=== PATIENT | male | born 1965 | race Caucasian/White ===

== ENCOUNTER 2022-10-27 23:33 | Emergency (ER) | payer BC ==
[~2022-10-27] VITALS: Ht 188 cm; Wt 81.8 kg
[2022-10-27 23:46] VITALS: BP 107/56
[2022-10-28] VITALS (10 sets, daily range): BP systolic 109–138; BP diastolic 72–87
[2022-10-28 00:03] LABS: BASO% 0.5 % (0-3); EOS% 0.5 % (0-8); HEMATOCRIT 31.4 % (39.0-50.0); HEMOGLOBIN 11.2 g/dl (14.0-18.0); IMMATURE GRANULOCYTES 0.5 % (0.0-5.0); LYMPH% 27.9 % (15-41); MEAN CELL VOLUME 82.8 fL CALC (80.0-100.0); MEAN CORPUSCULAR HGB 29.6 pG CALC (26.0-32.0); MEAN CORPUSCULAR HGB CONC 35.7 g/dL CAL (32.0-36.0); MONO% 15.8 % (2-13); NEUT# 2.04 thou/uL (1.82-7.42); NEUT% 54.8 % (42-76); RED BLOOD COUNT 3.79 mill/uL (4.70-6.10); RED CELL DISTRI WIDTH 13.7 % (11.5-15.5)
[2022-10-28 00:28] LABS: ALBUMIN 3.9 g/dL (3.2-5.0); ALKALINE PHOSPHATASE 135 u/l (38-126); ANION GAP 12 (6-22 (CALC)); BUN 5 mg/dL (9-20); BUN/CREATININE RATIO 6 (12-20 (CALC)); CARBON DIOXIDE 25 mmol/l (22-30); CHLORIDE 95 mmol/l (95-108); CREATININE 0.8 mg/dL (0.7-1.3); ETHYL ALCOHOL 0 mg/dl (0-30); GFR FOR AFR.AMER. > 60 ML/MIN (>=60 (CALC)); GFR OTHER RACES > 60 ML/MIN (>=60 (CALC)); LIPASE 109 u/l (23-300); MAGNESIUM 1.6 mg/dL (1.6-2.3); POTASSIUM 3.4 mmol/l (3.5-5.1); SGOT/AST 183 u/l (17-59); SODIUM 128 mmol/l (137-146); TOTAL PROTEIN 6.4 g/dL (6.3-8.2)
[2022-10-28 01:34] LABS: URINE BILIRUBIN - DIPSTICK NEGATIVE (NEGATIVE); URINE BLOOD DIPSTICK NEGATIVE (NEGATIVE); URINE COLOR YELLOW; URINE GLUCOSE - DIPSTICK NEGATIVE (NEGATIVE); URINE KETONE NEGATIVE (NEGATIVE); URINE LEUK ESTERASE NEGATIVE (NEGATIVE); URINE PROTEIN - DIPSTICK NEGATIVE (NEG-TRACE); URINE SPECIFIC GRAVITY <=1.005; URINE UROBILINOGEN - DIPSTICK 0.2 E.U./dL (0.2)
[2022-10-28 01:45] LABS: URINE NITRITE - DIPSTICK NEGATIVE (Negative)
[2022-10-28] MEDS ORDERED: LEXAPRO10 MG PO (02:17)
[2022-10-28] MEDS ORDERED: LIBRIUM10 MG PO (02:17)
[2022-10-28] MEDS ORDERED: K-TAB20 MEQ PO (10:40)
[2022-10-28] MEDS ORDERED: ZOFRAN4 MG/TAB PO (10:40)
== END 2022-10-28 05:00 | disposition home or self-care (01) | DRG 897 ==
LOC: ED 23:33
PROVIDERS: Family Medicine
DX: F10.10 Alcohol abuse, uncomplicated (principal); F41.9 Anxiety disorder, unspecified
CPT/HCPCS: Q9967

== ENCOUNTER 2022-10-28 09:29 | Emergency (ER) | payer BC ==
[~2022-10-28] VITALS: Ht 188 cm; Wt 77.0 kg
[~2022-10-28 09:29] MED LIST: LEXAPRO10 MG PO; LIBRIUM10 MG PO
[2022-10-28 09:44] VITALS: BP 151/88
[2022-10-28 09:54] LABS: BASO% 0.6 % (0-3); EOS% 0.2 % (0-8); HEMATOCRIT 35.6 % (39.0-50.0); HEMOGLOBIN 12.4 g/dl (14.0-18.0); IMMATURE GRANULOCYTES 0.4 % (0.0-5.0); LYMPH% 21.3 % (15-41); MEAN CELL VOLUME 83.8 fL CALC (80.0-100.0); MEAN CORPUSCULAR HGB 29.2 pG CALC (26.0-32.0); MEAN CORPUSCULAR HGB CONC 34.8 g/dL CAL (32.0-36.0); MONO% 14.2 % (2-13); NEUT# 3.31 thou/uL (1.82-7.42); NEUT% 63.3 % (42-76); RED BLOOD COUNT 4.25 mill/uL (4.70-6.10); RED CELL DISTRI WIDTH 14.2 % (11.5-15.5)
[2022-10-28 10:00] VITALS: BP 142/96
[2022-10-28 10:08] LABS: ALBUMIN 4.5 g/dL (3.2-5.0); ALKALINE PHOSPHATASE 110 u/l (38-126); ANION GAP 14 (6-22 (CALC)); BILIRUBIN, TOTAL 0.3 mg/dL (0.0-1.4); BUN 4 mg/dL (9-20); BUN/CREATININE RATIO 5 (12-20 (CALC)); CARBON DIOXIDE 26 mmol/l (22-30); CHLORIDE 95 mmol/l (95-108); CREATININE 0.9 mg/dL (0.7-1.3); ETHYL ALCOHOL 0 mg/dl (0-30); GFR FOR AFR.AMER. > 60 ML/MIN (>=60 (CALC)); GFR OTHER RACES > 60 ML/MIN (>=60 (CALC)); POTASSIUM 3.1 mmol/l (3.5-5.1); SGOT/AST 193 u/l (17-59); SODIUM 132 mmol/l (137-146); TOTAL PROTEIN 7.2 g/dL (6.3-8.2)
[2022-10-28 10:15] VITALS: BP 128/84
[2022-10-28 10:30] VITALS: BP 127/85
[2022-10-28] MEDS ORDERED: K-TAB20 MEQ PO (10:40)
[2022-10-28] MEDS ORDERED: ZOFRAN4 MG/TAB PO (10:40)
[2022-10-28 10:45] VITALS: BP 127/84
[2022-10-28 10:57] VITALS: BP 127/84
== END 2022-10-28 11:00 | disposition home or self-care (01) | DRG 897 ==
LOC: ED 09:29
PROVIDERS: Family Medicine
DX: F10.10 Alcohol abuse, uncomplicated (principal); F41.9 Anxiety disorder, unspecified

== ENCOUNTER 2023-11-30 18:17 | Emergency (ER) | payer OTHER ==
[~2023-11-30 18:17] MED LIST changes: +K-TAB20 MEQ PO; +ZOFRAN4 MG/TAB PO
[2023-11-30 18:59] VITALS: BP 135/96
== END 2023-11-30 19:00 | disposition left against medical advice (07) | DRG 951 ==
LOC: ED 18:17 → LWOBS 18:59
DX: Z53.21 Procedure and treatment not carried out due to patient leaving prior to being seen by health care provider (principal)

== ENCOUNTER 2024-06-23 13:54 | Emergency (ER) | payer SELFPAY ==
[2024-06-23] VITALS (12 sets, daily range): BP systolic 135–167; BP diastolic 76–102
[~2024-06-23] VITALS: Ht 188 cm; Wt 88.4 kg
[2024-06-23] MEDS ORDERED: SODIUM CHLORIDE 0.9% 1,000 ML IV ONE (14:10)
[2024-06-23] MEDS ORDERED: ONDANSETRON HCl 4 MG/2 ML SDV IV ONE (14:10)
[2024-06-23] MEDS ORDERED: MULTIPLE VITAMIN 10 ML,THIAMINE HCL 100 MG in DEXTROSE 5% / 0.9% NACL 1,000 ML IV ONE ×2 (14:10→16:45)
[2024-06-23 14:21] LABS: BASO% 0.6 % (0-3); EOS% 0.1 % (0-8); HEMATOCRIT 45.8 % (39.0-50.0); IMMATURE GRANULOCYTES 0.1 % (0.0-5.0); MEAN CELL VOLUME 84.8 fL CALC (80.0-100.0); MEAN CORPUSCULAR HGB 29.6 pG CALC (26.0-32.0); MEAN CORPUSCULAR HGB CONC 34.9 g/dL CAL (32.0-36.0); MONO% 7.6 % (2-13); NEUT# 5.73 thou/uL (1.82-7.42); NEUT% 60.6 % (42-76); RED BLOOD COUNT 5.4 mill/uL (4.70-6.10); RED CELL DISTRI WIDTH 12.9 % (11.5-15.5)
[2024-06-23] MEDS ORDERED: MIDAZOLAM HCL 2 MG/2 ML VIAL IV ONE ×2 (14:25→16:35)
[2024-06-23 14:36] LABS: POTASSIUM 3.3 mmol/l (3.5-5.1); TOTAL PROTEIN 8.1 g/dL (6.3-8.2)
[2024-06-23 14:50] LABS: BILIRUBIN, TOTAL 1.1 mg/dL (0.2-1.3)
[2024-06-23 15:01] LABS: INTERNATIONAL NORMALIZED RATIO 1.1 RATIO (0.7-1.3)
[2024-06-23 15:04] LABS: PROTHROMBIN TIME 10.1 SECONDS (9.0-12.5)
[2024-06-23] MEDS ORDERED: POTASSIUM CHLORIDE 20 MEQ/TAB PO ONE (16:25)
[2024-06-23] MEDS ORDERED: MAGNESIUM HYDROXIDE 30 ML UDC PO PRN (16:45)
[2024-06-23] MEDS ORDERED: SODIUM CHLORIDE 0.9% 1,000 ML IV PRN (16:45)
[2024-06-23] MEDS ORDERED: ACETAMINOPHEN 325 MG/TAB PO PRN (16:45)
[2024-06-23] MEDS ORDERED: LORazepam 2 MG/ML IV PRN (16:45)
[2024-06-23] MEDS ORDERED: chlordiazePOXIDE HCL 25 MG CAP PO PRN (16:45)
[2024-06-23] MEDS ORDERED: LIBRIUM25 MG PO ×3 (16:55→16:58)
[2024-06-23] MEDS ORDERED: INSULIN LISPRO 100 UNITS/ML ML SC SCH (17:00)
[2024-06-23] MEDS ORDERED: ENOXAPARIN SODIUM 40 MG/0.4 ML SYR SC SCH (21:00)
[2024-06-24] MEDS ORDERED: FOLIC ACID 1 MG/TAB PO SCH (09:00)
[2024-06-24] MEDS ORDERED: THIAMINE HCL 100 MG TAB PO SCH (09:00)
[2024-06-24] MEDS ORDERED: MULTIPLE VITAMIN TABLET PO SCH (09:00)
== END 2024-06-23 16:51 | disposition left against medical advice (07) | DRG 894 ==
LOC: ED 13:54 → ED-I 16:25 → ED 16:51
PROVIDERS: Family Medicine
DX: F10.239 Alcohol dependence with withdrawal, unspecified (principal); Y90.8 Blood alcohol level of 240 mg/100 ml or more; F41.9 Anxiety disorder, unspecified; Z53.29 Procedure and treatment not carried out because of patient's decision for other reasons